=== PATIENT | female | born 1975 | race African-American/Black ===

== ENCOUNTER 2018-05-31 08:13 | Emergency (ER) | payer SELFPAY ==
[~2018-05-31] VITALS: Ht 170.2 cm; Wt 55.8 kg
[2018-05-31 08:19] VITALS: BP 128/79
--- NOTE | 2018-05-31 08:26 | NUR ---
PT. BIB FRIEND WITH C/O BUG BITE ON LEFT FOREARM X3 DAYS, + SWELLING REDNESS WARM TO TOUCH. PT. DENIES ANY FEVERS OR CHILLS, DENIES ANY N/V/D. L FOREARM ABSCESS NOTED THAT IS TENDER TO TOUCH. 9/10 SHARP AND THROBBING PAIN THAT IS NON RADIAITING. PT DENIES ANY APPETITE CHANGES, DENIES ANY LOSS OF STRENGTH IN L ARM. BILAT HAND STRENGTH 3+. ER MD MADE AWARE. SAFETY PRECAUTIONS IMPLEMENTED. WILL CONTINUE TO MONITOR.
--- NOTE | 2018-05-31 08:27 | NUR ---
pt ambulated to er bed 12
[2018-05-31] MEDS ORDERED: ceFAZolin 1,000 MG VIAL IM ONE (08:35)
[2018-05-31] MEDS ORDERED: WATER STERILE 10 ML MC ONE (08:46)
[2018-05-31] MEDS ORDERED: IBUPROFEN 400 MG TAB PO ONE (08:55)
[2018-05-31] MEDS ORDERED: traMADol 50 MG TAB PO ONE (08:55)
[2018-05-31 09:11] VITALS: BP 129/80
--- NOTE | 2018-05-31 09:11 | NUR ---
Patient discharged with v/s stable. Written and verbal after care instructions given and explained. Patient alert, oriented and verbalized understanding of instructions. Ambulatory with steady gait. All questions addressed prior to discharge. ID band removed. Patient advised to follow up with PMD. Rx of TRAMADOL, CEPHALAXIN, MOTRIN 400MG given. Patient educated on indication of medication including possible reaction and side effects. Opportunity to ask questions provided and answered.
== END 2018-05-31 09:11 | disposition home or self-care (01) ==
LOC: MED 08:13
DX: L02.414 Cutaneous abscess of left upper limb (principal); L03.114 Cellulitis of left upper limb; F17.210 Nicotine dependence, cigarettes, uncomplicated; Z71.6 Tobacco abuse counseling
CPT/HCPCS: 96372; 99283; J0690